=== PATIENT | female | born 1980 | race African-American/Black ===

== ENCOUNTER 2016-12-28 22:16 | Emergency (ER) | payer SELFPAY ==
[~2016-12-28 22:16] MED LIST: IRON236 M1 PO
== END 2016-12-29 00:45 ==
LOC: EDMED 22:16
DX: G43.909 Migraine, unspecified, not intractable, without status migrainosus (principal); Z79.899 Other long term (current) drug therapy; F17.200 Nicotine dependence, unspecified, uncomplicated
CPT/HCPCS: J1200; J1885; J2765; J7030